=== PATIENT | female | born 1965 | race Hispanic/Latino ===

== ENCOUNTER 2022-09-13 06:07 | Day surgery (SDC) | payer OTHER, SELFPAY ==
[2022-09-11 10:10] LABS: Potassium 3.8 mEq/L (3.5-5.1)
--- NOTE | 2022-09-11 19:09 | EKG ---
Test Date: 2022-09-11 Test Time: 09:37:19 Batchmaker: ANUP MEASUREMENT RESULTS: Intervals: Rate: 79 MI: 152 QRSD: 74 QT: 410 QTc: 470 [place]: P: 23 MI: 152 QRS: -36 T: 24 INTERPRETIVE STATEMENTS: Normal sinus rhythm Left axis deviation Low voltage QRS Possible Anterolateral infarct, age undetermined Abnormal ECG Compared to ECG 12/26/2010 13:02:25 Left-axis deviation now present Myocardial infarct finding still present Electronically Signed On 09-11-22 19:08:35 CDT by Mateo Coleman
[2022-09-13] MEDS ORDERED: NA CHLORIDE 0.9% 1,000 ML ONE (06:20)
[2022-09-13] MEDS: CEFAZOLIN SODIUM 2 GM/VIAL ONE ×2 (06:48→07:47)
[2022-09-13] MEDS ORDERED: propofoL 200 MG/20 ML VIAL IV ONE (07:24)
[2022-09-13] MEDS ORDERED: MIDAZOLAM HCL 2 MG/2 ML INJ ONE (07:24)
[2022-09-13] MEDS ORDERED: ONDANSETRON 4 MG/2 ML VIAL ONE (07:24)
[2022-09-13] MEDS ORDERED: LIDOCAINE 2% MPF 5 ML VIAL ONE (07:24)
[2022-09-13] MEDS ORDERED: dexAMETHasone 4 MG/ML VIAL ONE (07:24)
[2022-09-13] MEDS ORDERED: FENTANYL CITR 100 MCG/2 ML ONE (07:24)
[2022-09-13] MEDS: BUPIVACAINE 0.25% PF 30 ML VIAL ONE ×2 (08:04→08:14)
--- NOTE | 2022-09-13 08:52 | P.OP ---
Preoperative diagnosis: RIGHT Shoulder Blade Lipoma Postoperative diagnosis: RIGHT Shoulder Blade Lipoma Primary procedure: Wide Excision of RIGHT Shoulder Blade Lipoma Anesthesia: GETA + Local Estimated blood loss: <5cc Specimen: Lipomatous Mass Findings: ~ 15cm x 15cm down to muscle fasica lipoma Complications: None Drain(s): PRO drain (10mm round) Transferred to: Recovery Room Condition: Good
[2022-09-13 10:23] VITALS: BP 131/74; TEMP 96.8; O2SAT 98
--- NOTE | 2022-09-13 18:57 | OP ---
Date of Procedure: 09/13/2022 Surgeon: Medhat Coffey MD, Preoperative Diagnosis: Right shoulder blade lipoma. Postoperative Diagnosis: Right shoulder blade lipoma. Procedure Performed: Wide excision of right shoulder blade lipoma. Anesthesia: General endotracheal plus local with 0.25% Marcaine. Estimated Blood Loss: Less than 5 cc. Specimen: Lipomatous mass. Findings: 15 cm x 15 cm lipomatous mass extending down to the fascia overlying the muscle. Complications: None. Drains: A 10 mm round PRO drain was placed, brought out through a separate stab incision inferiorly. Disposition: Patient transferred to recovery room in good condition. Procedure In Detail: After informed consent was obtained, patient was brought to the operating room, prepped and draped in the usual sterile fashion. After adequate anesthesia was achieved, I made a t ransverse incision across a large lipomatous mass of the right shoulder blade down to subcutaneous ti ssues. I then dissected down using electrocautery down to expose the lipomatous mass which was found to be 15 cm x 15 cm down to the fascia overlying the muscle. I took this out using combination of b helen electrocautery dissection, circumferentially around, removing the mass, sending off for patholog ic examination. At this point, I irrigated the area copiously. Hemostasis was achieved with electro cautery. I irrigated the area once again, dried it out completely. No additional hemostatic maneuve rs were required. At this point, I made a small stab incision inferior to the previous incision, bro ught a 10 mm round PRO drain in and placed in this cavity and then secured the drain with a 3-0 nylon suture. I then secured the deep dermal plane using interrupted 3-0 Vicryl sutures and then closed th e incision with 4-0 Monocryl in a running fashion. Dermabond was placed over top. The patient arik ated the procedure well without evidence of complication and transferred to PACU in good condition. All counts were correct at the end of the case. TK/MODL Voice ID: [id number] Report ID: [id number]
== END 2022-09-13 10:16 | disposition home or self-care (01) ==
LOC: OR 06:07
PROVIDERS: ATTEND Surgery
PROC: 0JBD0ZZ Excision of Right Upper Arm Subcutaneous Tissue and Fascia, Open Approach (ICD-10-PCS; principal; 2022-09-13 08:00)
DX: D17.21 Benign lipomatous neoplasm of skin and subcutaneous tissue of right arm (principal)
CPT/HCPCS: 93005; 80048; 36415; 82947 ×2; 88304; 11406; J2704; J1100; J2001; J2250; J3010; J2405; J7030